=== PATIENT | female | born 1980 | race Caucasian/White ===

== ENCOUNTER 2021-09-02 06:46 | Emergency (ER) | payer OTHER ==
[~2021-09-02] VITALS: Ht 162.6 cm; Wt 59.8 kg
[2021-09-02 07:44] LABS: BASO % 1 % (0-3); EOS % 1 % (0-3); HEMATOCRIT 43.7 % (36.0-47.0); HEMOGLOBIN 14.5 g/dL (12.0-15.5); LYMPH # 2.4 x10^3/uL (1.0-4.8); LYMPH % 37 % (24-48); MEAN CORPUSCULAR HEMOGLOBIN 32 pg (25-35); MEAN CORPUSCULAR HGB CONC 33 g/dL (31-37); MEAN CORPUSCULAR VOLUME 96 fL (79-100); MONO # 0.6 x10^3/uL (0.0-1.1); MONO % 10 % (0-9); NEUT # 3.3 x10^3/uL (1.8-7.7); NEUT % 52 % (31-73); PLATELET COUNT 219 x10^3/uL (140-400); RED BLOOD COUNT 4.56 x10^6/uL (3.50-5.40); RED CELL DISTRIBUTION WIDTH 12.8 % (11.5-14.5); WHITE BLOOD COUNT 6.4 x10^3/uL (4.0-11.0)
[2021-09-02 07:54] LABS: BILIRUBIN,URINE NEGATIVE (NEG); CLARITY,URINE CLEAR; COLOR,URINE AMBER; NITRITE,URINE NEGATIVE (NEG); PH,URINE 6.5 (<5.0-8.0); PROTEIN,URINE NEGATIVE (NEG-TRACE)
[2021-09-02 08:02] LABS: CREATININE 0.6 mg/dL (0.6-1.0); GFR 110.7; POTASSIUM 4.2 mmol/L (3.5-5.1)
[2021-09-02 08:06] LABS: ALBUMIN 3.9 g/dL (3.4-5.0); ALBUMIN/GLOBULIN RATIO 1.1 (1.0-1.7); TOTAL BILIRUBIN 0.3 mg/dL (0.2-1.0); TOTAL PROTEIN 7.3 g/dL (6.4-8.2)
--- NOTE | 2021-09-02 08:06 | PHYS DOC ---
Past Medical History Past Surgical History: , Oophorectomy Smoking Status: Never Smoker Alcohol Use: Rarely General Adult EDM: Chief Complaint: ABDOMINAL PAIN HPI: HPI: 40 yo F presents to the ED with complaints of severe left lower quadrant pain that woke patient up around 5:00 this morning. Patient states the pain has been waxing and waning and feels like her ectopic in 2011. Reports the pain was severe when it woke her up and is very mild now-is worried pain will return like her past history of an ectopic that required emergency surgery. Is sexually active with one partner, her . Reports dyspareunia since childbirth (has 2 C-sections). Reports no associated dysuria, hematuria, abnormal vaginal discharge, itching or odor. History of 1 elective termination, 2 spontaneous abortions and one ectopic . History of IVF twice and tubal ligation. LMP 08/11/21. Is not concerned for STIs. Review of Systems: Review of Systems: Constitutional: Denies fever or chills. [] Eyes: Denies change in visual acuity. [] HENT: Denies nasal congestion or sore throat. [] Respiratory: Denies cough or shortness of breath. [] Cardiovascular: Denies chest pain or edema. [] GI: Denies nausea, vomiting, bloody stools or diarrhea. [] : Denies dysuria or vaginal bleeding Musculoskeletal: Denies back pain or joint pain. [] Integument: Denies rash or diaphoresis Neurologic: Denies headache, focal weakness or sensory changes. [] Endocrine: Denies polyuria or polydipsia. [] Lymphatic: Denies swollen glands. [] Psychiatric: Denies depression or anxiety. [] Heart Score: C/O Chest Pain: No Risk Factors: Risk Factors: DM, Current or recent (<one month) smoker, HTN, HLP, family history of CAD, obesity. Risk Scores: Score 0 - 3: 2.5% MACE over next 6 weeks - Discharge Home Score 4 - 6: 20.3% MACE over next 6 weeks - Admit for Clinical Observation Score 7 - 10: 72.7% MACE over next 6 weeks - Early Invasive Strategies Allergies: Allergies: Allergies Coded Allergies Type Severity Reaction Last Updated Verified No Known Drug Allergies 09/02/21 No Physical Exam: PE: Constitutional: Well developed, well nourished, no acute distress, non-toxic appearance, thin/healthy appearing HENT: Normocephalic, atraumatic, Eyes: EOMI, conjunctiva normal, no discharge. Neck: Normal range of motion, supple, Cardiovascular: S1/2 present, regular rhythm Lungs & Thorax: Speaking in full sentences, bilateral equal chest rise, no tachypnea or increased work of breathing Abdomen: soft, no tenderness, Skin: Warm, dry, no erythema, no rash. [] Back: No tenderness, no CVA tenderness. [] Extremities: No tenderness, no cyanosis, no lower extremity edema Neurologic: Alert and oriented X 3, normal motor function, normal sensory function, no focal deficits noted. [] Psychologic: Affect normal, judgement normal, mood normal. [] Pelvic: Chaperoned by RN, external genitalia normal, no vaginal bleeding, normal nonmalodorous discharge, cervical os closed, no cervical erythema, bares down with speculum exam - appears uncomfortable and in pain w/ speculum and manual exam, reports bilateral adnexal tenderness, Current Patient Data: Labs: Laboratory Tests Test 09/02/21 07:25 09/02/21 07:28 White Blood Count 6.4 x10^3/uL (4.0-11.0) Red Blood Count 4.56 x10^6/uL (3.50-5.40) Hemoglobin 14.5 g/dL (12.0-15.5) Hematocrit 43.7 % (36.0-47.0) Mean Corpuscular Volume 96 fL (79-100) Mean Corpuscular Hemoglobin 32 pg (25-35) Mean Corpuscular Hemoglobin Concent 33 g/dL (31-37) Red Cell Distribution Width 12.8 % (11.5-14.5) Platelet Count 219 x10^3/uL (140-400) Neutrophils (%) (Auto) 52 % (31-73) Lymphocytes (%) (Auto) 37 % (24-48) Monocytes (%) (Auto) 10 % (0-9) H Eosinophils (%) (Auto) 1 % (0-3) Basophils (%) (Auto) 1 % (0-3) Neutrophils # (Auto) 3.3 x10^3/uL (1.8-7.7) Lymphocytes # (Auto) 2.4 x10^3/uL (1.0-4.8) Monocytes # (Auto) 0.6 x10^3/uL (0.0-1.1) Eosinophils # (Auto) 0.0 x10^3/uL (0.0-0.7) Basophils # (Auto) 0.0 x10^3/uL (0.0-0.2) POC Urine HCG, Qualitative Hcg negative (Negative) Laboratory Tests 09/02/21 07:25 Vital Signs: Vital Signs Date Time Temp Pulse Resp B/P (MAP) Pulse Ox O2 Delivery O2 Flow Rate FiO2 09/02/21 07:03 98.3 93 16 118/75 (89) 99 Room Air 98.3 EKG: EKG: [] Radiology/Procedures: Radiology/Procedures: IMAGING REPORT Signed PATIENT: JUJU MELGOZA DACCOUNT: [id number] : 1980 LOCATION: ER AGE: 40 SEX: F EXAM STATUS: REG ER ORD. PHYSICIAN: KELVIN BAILEY DO REASON: severe llq pain PROCEDURE: CT ABD PELV W/ IV CONTRST ONLY Exam: CT abdomen/pelvis with intravenous contrast Indication: Severe left lower quadrant pain Comparison: None Technique: Helical CT imaging performed of the abdomen and pelvis after the intravenous administration of 75 mL Omnipaque 300 contrast. Sagittal and coronal reformats were obtained. One or more of the following individualized dose reduction techniques were utilized for this examination: 1. Automated exposure control 2. Adjustment of the mA and/or kV according to patient size 3. Use of iterative reconstruction technique. Findings: Lower chest: The lung bases are clear. The heart is normal in size. There are incompletely visualized bilateral breast implants. Liver: Liver is normal in size. There is focal fat along the falciform ligament. Gallbladder/Biliary Tree: Normal. Pancreas: Normal. Spleen: Normal. Adrenal Glands: Normal. Kidneys/Ureters/Bladder: Kidneys are normal. No hydronephrosis. Ureters and bladder are normal. Reproductive Organs: Uterus and ovaries are normal. There is a dominant right ovarian follicle. Stomach, small bowel, and colon: Stomach is normal. There is no small bowel obstruction. The appendix and colon are normal. Vasculature: Abdominal aorta is normal in caliber. Minimal aortic calcification s. Lymph Nodes: No lymphadenopathy. Peritoneum and retroperitoneum: No free fluid or free air. Bones: No acute osseous abnormality. IMPRESSION: No acute abnormality in the abdomen and pelvis. Electronically signed by: Polina Terry MD (09/02/2021 8:58 AM) [id number] DICTATED and SIGNED BY: POLINA TERRY MD DATE: 09/02/21 [id number] IMAGING REPORT Signed PATIENT: JUJU MELGOZA DACCOUNT: [id number] : 1980 LOCATION: ER AGE: 40 SEX: F EXAM STATUS: REG ER ORD. PHYSICIAN: KELVIN BAILEY DO REASON: left adnexa pain PROCEDURE: PELVIS W/TV EXAMINATION: US PELVIS W/TV, 09/02/2021 9:09 AM CLINICAL INDICATION: Left adnexal pain TECHNIQUE: Grayscale, color and spectral Doppler ultrasound images of the pelvis via transabdominal and transvaginal approach. COMPARISON: None. FINDINGS: The uterus measures 8.7 x 5.7 x 3.9 cm. The endometrial stripe measures 10 mm in thickness. There are 2 myometrial masses, one measuring 1.3 x 1.1 x 1.0 cm and the other 1.3 x 1.2 x 1.2 cm, likely fibroids. The right ovary measures 3.5 x 2.5 x 2.7 cm. The left ovary measures 2.3 x 2.0 x 1.3 cm. Normal ovarian blood flow bilaterally. No adnexal mass or free fluid. IMPRESSION: 1. No acute abnormality. 2. There are 2 small fibroids in the uterus measuring 1.3 cm each. Electronically signed by: Polina Terry MD (09/02/2021 10:09 AM) [id number] DICTATED and SIGNED BY: POLINA TERRY MD DATE: 09/02/21 [id number] 0 Course & Med Decision Making: Course & Med Decision Making Pertinent Labs and Imaging studies reviewed. (See chart for details) Concern for sudden onset, brief, left pelvic pain in a well-appearing female. Pain had significantly improved before ED arrival. Reevaluation patient has been asymptomatic and states " I feel stupid for coming in." CT imaging of the abdomen pelvis unremarkable. Transvaginal ultrasound shows 2 uterine fibroids with normal-appearing ovaries, appropriate blood flow. We discussed differ ential including ovarian torsion vs large bowel infection/process with her at bedside, (patient consents to his/her/their knowledge and involvement in pts' medical care). Labs unremarkable with normal urinalysis. Will discharge home with strict ED return precautions were given for recurrent pain. Encouraged urgent outpatient follow-up with PMD for routine care, consider SIPHON OPERATOR evaluation for uterine fibroids and dyspareunia. Life-threatening processes were considered but are low suspicion at this time, given history, physical exam and ED workup. Pt was educated on all prescription medications and adverse effects. All patient's questions were answered and pt was stable at time of discharge. Life/limb-threatening differential includes but is not limited to, ectopic , septic , sepsis/infection (endometritis, sti/pid, cystitis, pyelonephritis, Michell's gangrene or necrotizing fasciitis, abscess), ovarian torsion, ruptured hemorrhagic ovarian cyst, endometriosis, ureterolithiasis, thrombophlebitis, hemorrhage/DIC, organ prolapse, abdominal aortic aneurysm, mesenteric ischemia, neoplasm, bowel obstruction or surgical abdomen. I have spoken with the patient and/or caregivers. I explained the patient's condition, diagnoses and treatment plan based on the information available to me at this time. I have answered the patient and/or caregiver's questions and addressed any concerns. The patient and/or caregivers have a good understanding of patient's diagnosis, condition and treatment plan as can be expected at this point. Vital signs have been stable. Patient's condition is stable and appropriate for discharge from the emergency department. Patient will pursue further outpatient evaluation with primary care physician or other designated or consulting physician as outlined in the discharge instructions. The patient and/or caregivers are agreeable to this plan of care and follow-up instructions have been explained in detail. The patient and/or caregivers have received these instructions in written form and have expressed an understanding of the discharge instructions. The patient and/or caregivers are aware that any significant change of condition or worsening of symptoms should prompt immediate return to this or the closest emergency department or call to 911. Cassy Disclaimer: Cassy Disclaimer: This electronic medical record was generated, in whole or in part, using a voice recognition dictation system. Departure Departure Impression: Primary Impression: Left sided abdominal pain Additional Impression: Uterine fibroid Disposition: HOME / SELF CARE / HOMELESS Condition: STABLE Referrals: NO PCP (PCP) Follow-up with your primary care physician in 1-2 weeks for routine care OR FOLLOW UP WITH FAMILY MEDICINE: [address], [address] [place] [address] Patient Instructions: Pelvic Pain, Female, Uterine Fibroid, [id number] Additional Instructions: FOLLOW UP WITH SIPHON OPERATOR: FOR DEFINITIVE MANAGEMENT of uterine fibroids [facility] [address], [address] [place] [address] EMERGENCY DEPARTMENT GENERAL DISCHARGE INSTRUCTIONS Thank you for coming to [facility] Emergency Department (ED) today and trusting us with you care. We trust that you had a positive experience in our Emergency Department. If you wish to speak to the department management, you may call the Director at [phone]. YOUR FOLLOW UP INSTRUCTIONS ARE FOLLOWS: 1. Do you have a private Doctor? If you do not have a private doctor, please ask for a resource list of physicians or clinics that may be able to assist you with follow up care. 2. The Emergency Physicain has interpreted your x-rays. The X-Ray specialist will also review them. If there is a change in the findings, you will be notified in 48 hours when at all possible. 3. A lab test or culture has been done, your results will be reviewed and you will be notified if you need a change in treatment. ADDITIONAL INSTRUCTIONS AND INFORMATION: 1. Your care today has been supervised by a physician who is specially trained in emergency care. Many problems require more than one evaluation for a complete diagnosis and treatment. We recommend that you schedule your follow up appointment as recomm ended to ensure complete treatment of you illness or injury. If you are unable to obtain follow up care and continue to have a problem, or if your condition worsens, we recommend that you return to the ED. 2. We are not able to safely determine your condition over the phone nor are we able to give sound medical advice over the phone. For these safety reasons, if you call for medical advice we will ask you to come to the ED for further evaluation. 3. If you have any questions regarding these discharge instructions please call the ED at [phone]. SAFETY INFORMATION: In the interest of safety, wellness, and injury prevention; we encourage you to wear your sealbelt, if you smoke; quite smoking, and we encourage family to use a protective helmet for bicycling and other sporting events that present an increased risk for head injury. IF YOUR SYMPTOMS WORSEN OR NEW SYMPTOMS DEVELOP, OR YOU HAVE CONCERNS ABOUT YOUR CONDITION; OR IF YOUR CONDITION WORSENS WHILE YOU ARE WAITING FOR YOUR FOLLOW UP APPOINTMENT; EITHER CONTACT YOUR PRIMARY CARE DOCTOR, THE PHYSICIAN WHOSE NAME AND NUMBER YOU WERE GIVEN, OR RETURN TO THE ED IMMEDIATELY. KELVIN BAILEY DO Sep 02, 2021 08:06
[2021-09-02 08:07] LABS: BACTERIA,URINE 0 /HPF (0-FEW); HYALINE CASTS, URINE OCCASIONAL /HPF; RBC,URINE 0 /HPF (0-2); WBC,URINE OCC /HPF (0-4)
[2021-09-02] MEDS ORDERED: IOHEXOL 300 MG/ML 100ML VIAL. IV ONE (08:30)
[2021-09-02] MEDS ORDERED: CONTRAST GIVEN. MC PRN (08:30)
--- NOTE | 2021-09-02 09:00 | RAD ---
Exam: CT abdomen/pelvis with intravenous contrast Indication: Severe left lower quadrant pain Comparison: None Technique: Helical CT imaging performed of the abdomen and pelvis after the intravenous administratio n of 75 mL Omnipaque 300 contrast. Sagittal and coronal reformats were obtained. One or more of the following individualized dose reduction techniques were utilized for this examinat ion: 1. Automated exposure control 2. Adjustment of the mA and/or kV according to patient size 3. Use of iterative reconstruction technique. Findings: Lower chest: The lung bases are clear. The heart is normal in size. There are incompletely visualized bilateral breast implants. Liver: Liver is normal in size. There is focal fat along the falciform ligament. Gallbladder/Biliary Tree: Normal. Pancreas: Normal. Spleen: Normal. Adrenal Glands: Normal. Kidneys/Ureters/Bladder: Kidneys are normal. No hydronephrosis. Ureters and bladder are normal. Reproductive Organs: Uterus and ovaries are normal. There is a dominant right ovarian follicle. Stomach, small bowel, and colon: Stomach is normal. There is no small bowel obstruction. The appendix and colon are normal. Vasculature: Abdominal aorta is normal in caliber. Minimal aortic calcifications. Lymph Nodes: No lymphadenopathy. Peritoneum and retroperitoneum: No free fluid or free air. Bones: No acute osseous abnormality. IMPRESSION: No acute abnormality in the abdomen and pelvis. Electronically signed by: Polina Terry MD (09/02/2021 8:58 AM) [id number]
--- NOTE | 2021-09-02 10:11 | RAD ---
EXAMINATION: US PELVIS W/TV, 09/02/2021 9:09 AM CLINICAL INDICATION: Left adnexal pain TECHNIQUE: Grayscale, color and spectral Doppler ultrasound images of the pelvis via transabdominal a nd transvaginal approach. COMPARISON: None. FINDINGS: The uterus measures 8.7 x 5.7 x 3.9 cm. The endometrial stripe measures 10 mm in thickness. There are 2 myometrial masses, one measuring 1.3 x 1.1 x 1.0 cm and the other 1.3 x 1.2 x 1.2 cm, likely fibro ids. The right ovary measures 3.5 x 2.5 x 2.7 cm. The left ovary measures 2.3 x 2.0 x 1.3 cm. Normal ovari an blood flow bilaterally. No adnexal mass or free fluid. IMPRESSION: 1. No acute abnormality. 2. There are 2 small fibroids in the uterus measuring 1.3 cm each. Electronically signed by: Polina Terry MD (09/02/2021 10:09 AM) [id number]
[2021-09-02 10:39] VITALS: BP 107/67
== END 2021-09-02 11:10 | disposition home or self-care (01) ==
LOC: ER 06:46
DX: D25.9 Leiomyoma of uterus, unspecified (principal); Z90.722 Acquired absence of ovaries, bilateral
CPT/HCPCS: 36415; 74177; 76830; 76856; 80053; 81001; 81025; 84702; 85025; 99285; Q9967